=== PATIENT | female | born 1995 | race Caucasian/White ===

== ENCOUNTER 2017-01-04 21:16 | Emergency (ER) | payer SELFPAY ==
--- NOTE | 2017-01-04 21:30 | C.PDOC ---
History Of Present Illness Patient came in due to history of chest pain on and off since yesterday. Pain described to be at the left anterior chest area. Time Seen by Provider: 01/04/17 21:29 History Per: Patient History/Exam Limitations: no limitations Onset/Duration Of Symptoms: Days, Waxing/Waning Current Symptoms Are (Timing): Still Present Severity: Moderate Pain Scale Rating Of: 4 Location Of Discomfort (Image): 1 - left anterior lisa wall area Quality: Sharp Associated Symptoms: denies: Nausea, Dyspnea, Diaphoresis, Syncope Alleviating Factors: Other (increased by palpation and movemeny) Recent travel outside of the [place]: No Additional History Per: Patient Past Medical History Vital Signs: Last Vital Signs Temp 98.2 F 01/04/17 21:25 Pulse 83 01/04/17 21:25 Resp 24 01/04/17 21:25 BP 115/73 01/04/17 21:25 Pulse Ox 100 01/04/17 23:37 - Medical History PMH: No Chronic Diseases Surgical History: No Surg Hx Family History: States: Unknown Family Hx Review Of Systems Constitutional: Negative for: Fever, Chills, Sweats, Weakness, Malaise, Weight loss Cardiovascular: Positive for: Chest Pain. Negative for: Palpitations, Orthopnea , Paroxysmal Noc. Dyspnea, Edema, Light Headedness Respiratory: Negative for: Cough, Shortness of Breath, Hemoptysis, SOB with Excertion, Sputum Gastrointestinal: Negative for: Nausea, Vomiting, Abdominal Pain, Diarrhea Genitourinary: Negative for: Dysuria, Frequency, Incontinence Musculoskeletal: Negative for: Neck Pain, Shoulder Pain, Arm Pain Skin: Negative for: Rash, Lesions Neurological: Negative for: Weakness, Numbness, Incoordination, Change in Speech , Confusion, Seizures, Altered Mental Status, Headache Psych: Negative for: Anxiety, Depression Physical Exam - Physical Exam Appears: Well, Non-toxic Skin: Normal Color Head: Atraumatic Nose: Normal Throat: Normal Neck: Normal Chest: Symmetrical, No Deformity, Tenderness (left anterior chest wall area.), No Ecchymosis, No Subcutaneous Emphysema Cardiovascular: Rhythm Regular Respiratory: Normal Breath Sounds Gastrointestinal/Abdominal: Normal Exam Back: Normal Inspection Extremity: Normal ROM ED Course And Treatment - Laboratory Results Result Diagrams: 01/04/17 21:45 01/04/17 21:45 ECG: Interpreted By Me, Viewed By Me ECG Rhythm: Sinus Rhythm ECG Interpretation: Normal, No Acute Changes Interpretation Of ECG: NSR, normal tracings. Rate From EC O2 Sat by Pulse Oximetry: 100 Pulse Ox Interpretation: Normal - Radiology CXR: Interpreted by Me, Viewed By Me CXR Interpretation: Yes: No Acute Disease, Other (normal chest film). No: Infiltrates, Pnemothorax Disposition Counseled Patient/Family Regarding: Diagnosis - Disposition Referrals: [facility] [Outside] Disposition: HOME/ ROUTINE Disposition Time: 23:34 Condition: STABLE Prescriptions: Naproxen 375 mg PO Q8 #20 tablet Potassium Chloride [K-Dur 20] 20 meq PO DAILY #7 tab Instructions: Hypokalemia (DC), Chest Wall Pain (ED) - POA Present On Arrival: None - Clinical Impression Clinical Impression: Chest wall pain, Hypokalemia
[2017-01-04 21:32] VITALS: O2SAT 100
[2017-01-04 21:52] LABS: BASO % 0.6 % (0.0-2.0); EOS # 0.1 K/uL (0.0-0.7); EOS % 1.6 % (0.0-4.0); HEMATOCRIT 33.2 % (34.0-47.0); LYMPH # 2.7 K/uL (1.0-4.3); MEAN CELL VOLUME 84.5 fL (81.0-99.0); MEAN CORPUSCULAR HEMOGLOBIN 28.3 pg (27.0-31.0); MEAN CORPUSCULAR HGB CONC 33.5 g/dL (33.0-37.0); MEAN PLATELET VOLUME 8.5 fL (7.2-11.7); MONO # 0.6 K/uL (0.0-0.8); MONO % 7.8 % (0.0-10.0); RED CELL DISTRIBUTION WIDTH 13.2 % (11.5-14.5); WHITE BLOOD COUNT 7.9 K/uL (4.8-10.8)
[2017-01-04 21:57] LABS: CHLORIDE 101 mmol/L (98-107); SODIUM 137 mmol/L (132-148)
[2017-01-04 21:58] LABS: POTASSIUM 3.3 mmol/L (3.6-5.2)
[2017-01-04 22:00] LABS: ALB/GLOB RATIO 1.3 (1.0-2.1); ALKALINE PHOSPHATASE 61 U/L (38-126); AST/SGOT 22 U/L (14-36); BILIRUBIN,TOTAL 0.5 mg/dL (0.2-1.3); BLOOD UREA NITROGEN 14 mg/dL (7-17); CARBON DIOXIDE 22 mmol/L (22-30); GFR AFRICAN-AMERICAN > 60; TOTAL PROTEIN 7.8 g/dL (6.3-8.3)
[2017-01-04 22:01] LABS: ALT/SGPT 30 U/L (9-52); CALCIUM 9.3 mg/dl (8.6-10.4); GLUCOSE,RANDOM 83 mg/dL (65-105)
[2017-01-04] MEDS: Potassium Chloride 20 mEq ER Tab PO STA ×2 (22:12→23:00)
[2017-01-04] MEDS ORDERED: Potassium Chloride 20 mEq ER Tab PO ONE ×3 (22:13→23:01)
[2017-01-04 23:50] VITALS: BP 114/67; PULSE 84; RESP 18; TEMP 98
--- NOTE | 2017-01-05 08:47 | RAD ---
HISTORY: chest pain COMPARISON: No prior. TECHNIQUE: Chest PA and lateral FINDINGS: LUNGS: Mild venous congestion. Bibasilar breast and nipple shadows. Small nodular densities at the bilateral lung bases likely represent prominent vessels on end. PLEURA: No significant pleural effusion identified. No pneumothorax apparent. CARDIOVASCULAR: Normal. OSSEOUS STRUCTURES: Scoliotic curvature of the spine. VISUALIZED UPPER ABDOMEN: Normal. OTHER FINDINGS: None. IMPRESSION: Mild venous congestion. Bibasilar breast and nipple shadows. Small nodular densities at the bilateral lung bases likely represent prominent vessels on end.
--- NOTE | 2017-01-05 13:02 | CARD ---
APPROVED REPORT EKG Measurement Heart [id number] [id number] <Conclusion> Normal sinus rhythm with sinus arrhythmia Normal ECG
[2017-01-05] MEDS ORDERED: Potassium Chloride 20 mEq ER Tab PO ONE (23:01)
== END 2017-01-04 23:52 | disposition home or self-care (01) ==
LOC: C.ER 21:16
DX: R07.89 Other chest pain (principal); E87.6 Hypokalemia
CPT/HCPCS: 71020; 80053; 84484; 85025; 85378; 93005; 96374; 99284; G0480; J1885

== ENCOUNTER 2017-12-08 15:36 | Emergency (ER) | payer MEDICAID, OTHER ==
[2017-12-08 15:48] VITALS: BP 108/66; PULSE 85; RESP 18; TEMP 98.7; O2SAT 100
--- NOTE | 2017-12-08 16:45 | C.PDOC ---
History Of Present Illness 22 y/o female presents to the ED complaining of occasional hard bowel movements over the past 4 days. States she tried taking dulcolax at home without relief. Patient admits her diet is composed of mostly junk food. Denies any vomiting, diarrhea, fever, chills, or other complaints. Time Seen by Provider: 12/08/17 16:31 Chief Complaint (Nursing): Abdominal Pain History Per: Patient History/Exam Limitations: no limitations Onset/Duration Of Symptoms: Days Current Symptoms Are (Timing): Still Present Associated Symptoms: Constipation Past Medical History Reviewed: Historical Data, Nursing Documentation, Vital Signs Vital Signs: Last Vital Signs Temp 98.7 F 12/08/17 15:46 Pulse 85 12/08/17 15:46 Resp 18 12/08/17 15:46 BP 108/66 12/08/17 15:46 Pulse Ox 100 12/08/17 16:45 - Medical History PMH: No Chronic Diseases Surgical History: No Surg Hx Family History: States: Unknown Family Hx - Social History Hx Alcohol Use: No Hx Substance Use: No - Immunization History Hx Tetanus Toxoid Vaccination: No Hx Influenza Vaccination: No Hx Pneumococcal Vaccination: No Review Of Systems Except As Marked, All Systems Reviewed And Found Negative. Constitutional: Negative for: Fever, Chills Gastrointestinal: Positive for: Constipation. Negative for: Nausea, Vomiting, Diarrhea Physical Exam - Physical Exam Appears: Non-toxic, No Acute Distress, Other (Thin female) Skin: Warm, Dry Head: Atraumatic, Normacephalic Eye(s): bilateral: Normal Inspection Nose: Normal Oral Mucosa: Moist Neck: Normal ROM Chest: Symmetrical Cardiovascular: Rhythm Regular, No Murmur Respiratory: Normal Breath Sounds, No Accessory Muscle Use Gastrointestinal/Abdominal: Bowel Sounds (active), Soft, Tenderness (left colicky pain on palpation, (-) Amaral's sign, (-) McBurney's point tenderness), No Distention, No Guarding Extremity: Bilateral: Atraumatic, Normal Color And Temperature, Normal ROM Neurological/Psych: Oriented x3, Normal Speech ED Course And Treatment O2 Sat by Pulse Oximetry: 100 (RA) Pulse Ox Interpretation: Normal Medical Decision Making Medical Decision Making: Impression: assures not preg, not active extensively reviewed enema first, then repeat laxative until successful counseled regarding diet changes Disposition Doctor Will See Patient In The: Office Counseled Patient/Family Regarding: Studies Performed, Diagnosis - Disposition Referrals: [facility] [Outside] [facility] [Outside] [facility] [Outside] [facility] [Outside] Disposition: HOME/ ROUTINE Disposition Time: 16:44 Condition: GOOD Additional Instructions: Fleets enema FIRST THEN Drink a bottle of Mag Citrate (laxative) repeat each as necessary diet and exercise changes 7 fresh fruits and vegetables daily drink more water less junk food. outpatient follow-up as needed Call for appt. Instructions: Constipation, Adult (DC) Forms: [facility] (Andorran), School Excuse - POA Present On Arrival: None - Clinical Impression Clinical Impression: Abdominal pain, colicky - Scribe Statement The provider has reviewed the documentation as recorded by the Scribe (Lori Akhtar) Provider Attestation: All medical record entries made by the Scribe were at my direction and personally dictated by me. I have reviewed the chart and agree that the record accurately reflects my personal performance of the history, physical exam, medical decision making, and the department course for this patient. I have also personally directed, reviewed, and agree with the discharge instructions and disposition.
== END 2017-12-08 16:57 | disposition home or self-care (01) ==
LOC: C.ER 15:36
DX: R10.84 Generalized abdominal pain (principal)

== ENCOUNTER 2017-12-08 23:00 | Inpatient (IN) | payer MEDICAID, OTHER ==
--- NOTE | 2017-12-09 00:22 | C.PDOC ---
History Of Present Illness 22 year old female presents to the ER with a complaint of abdominal pain, bloating, and cramping, associated with some nausea and diarrhea. Patient was seen here earlier today for similar complaint and was found to be constipated, she was given fleet with mag citrate and reports having 7 or 8 episode of very loose now watery stool. However, she continues to have crampy abdominal discomfort which prompted visit. Denies fever or chills. Time Seen by Provider: 12/09/17 00:21 Chief Complaint (Nursing): Abdominal Pain History Per: Patient History/Exam Limitations: no limitations Onset/Duration Of Symptoms: Hrs Current Symptoms Are (Timing): Still Present Context: Other Severity: Moderate Pain Scale Rating Of: 4 Location Of Pain/Discomfort: Diffuse, Epigastric Quality Of Discomfort: Cramping Associated Symptoms: Nausea, Diarrhea. denies: Fever, Chills Exacerbating Factors: None Alleviating Factors: None Recent travel outside of the [place]: No Additional History Per: Patient Abnormal Vaginal Bleeding: No Past Medical History Reviewed: Historical Data, Nursing Documentation, Vital Signs Vital Signs: Last Vital Signs Temp 98.7 F 12/09/17 03:27 Pulse 66 12/09/17 03:27 Resp 14 12/09/17 03:27 BP 95/59 L 12/09/17 03:27 Pulse Ox 99 12/09/17 03:27 Family History: States: Unknown Family Hx - Social History Hx Alcohol Use: No Hx Substance Use: No - Immunization History Hx Tetanus Toxoid Vaccination: No Hx Influenza Vaccination: No Hx Pneumococcal Vaccination: No Review Of Systems Constitutional: Negative for: Fever, Chills Cardiovascular: Negative for: Chest Pain, Palpitations Respiratory: Negative for: Cough, Shortness of Breath Gastrointestinal: Positive for: Nausea, Abdominal Pain, Diarrhea Neurological: Negative for: Weakness, Numbness Physical Exam - Physical Exam Appears: Non-toxic Skin: Warm, Dry Head: Normacephalic Oral Mucosa: Moist Neck: Supple Chest: Symmetrical, No Tenderness Cardiovascular: Rhythm Regular Respiratory: No Rales, No Rhonchi, No Wheezing Gastrointestinal/Abdominal: Soft, Tenderness (mid epigastric), Distention ( Mildly), No Guarding, No Rebound, Other (Tympanic to percussion) Back: No CVA Tenderness Extremity: Bilateral: Atraumatic Neurological/Psych: Oriented x3 Gait: Steady ED Course And Treatment - Laboratory Results Result Diagrams: 12/09/17 00:59 12/09/17 00:59 O2 Sat by Pulse Oximetry: 100 (Room air) Pulse Ox Interpretation: Normal Progress Note: Blood work and urinalysis ordered. IV fluids administered. Disposition Discussed With DrElvi: Jack Alvarez Comment: accepted the pt on his service and took over the care at 5:13AM Doctor Will See Patient In The: ED Counseled Patient/Family Regarding: Studies Performed, Diagnosis - Disposition Disposition: HOSPITALIZED Disposition Time: 00:22 Condition: FAIR Forms: [employer] (Albanian) - Clinical Impression Clinical Impression: Abdominal pain, Acute pancreatitis - Scribe Statement The provider has reviewed the documentation as recorded by the Scribe Eleazar Umanzor All medical record entries made by the Hannyibe were at my direction and personally dictated by me. I have reviewed the chart and agree that the record accurately reflects my personal performance of the history, physical exam, medical decision making, and the department course for this patient. I have also personally directed, reviewed, and agree with the discharge instructions and disposition.
[2017-12-09] MEDS ORDERED: Sodium Chloride 0.9% 1,000 ML IV ONE (00:25)
[2017-12-09] MEDS ORDERED: Sodium Chloride 0.9% 1,000 ML ONE (00:31)
[2017-12-09 01:02] LABS: BASO % 0.5 % (0.0-2.0); EOS # 0.1 K/uL (0.0-0.7); EOS % 1.9 % (0.0-4.0); HEMOGLOBIN 12.3 g/dL (11.0-16.0); LYMPH # 2.1 K/uL (1.0-4.3); LYMPH % 27.8 % (20.0-40.0); MEAN CELL VOLUME 87.8 fL (81.0-99.0); MEAN CORPUSCULAR HGB CONC 34.2 g/dL (33.0-37.0); MEAN PLATELET VOLUME 8.6 fL (7.2-11.7); MONO # 0.7 K/uL (0.0-0.8); MONO % 8.9 % (0.0-10.0); NEUT # 4.7 K/uL (1.8-7.0); NEUT % 60.9 % (50.0-75.0); RBC 4.09 Mil/uL (3.80-5.20); RED CELL DISTRIBUTION WIDTH 13.3 % (11.5-14.5); WHITE BLOOD COUNT 7.7 K/uL (4.8-10.8)
[2017-12-09 01:09] LABS: SQUAMOUS EPITHIAL 1 /hpf (0-5); URINE BACTERIA RARE (<OCC); URINE BILIRUBIN NEGATIVE (NEGATIVE); URINE BLOOD NEGATIVE (NEGATIVE); URINE CLARITY Clear (Clear); URINE COLOR Yellow (YELLOW); URINE GLUCOSE (UA) NORMAL (Normal); URINE LEUKOCYTE ESTERASE NEG Leu/uL (Negative); URINE PROTEIN NEGATIVE (NEGATIVE); URINE UROBILINOGEN NORMAL mg/dL (0.2-1.0)
[2017-12-09 01:10] LABS: HCG,QUALITATIVE URINE NEGATIVE (NEGATIVE)
[2017-12-09 01:14] LABS: ALB/GLOB RATIO 1.6 (1.0-2.1); ALBUMIN 4.5 g/dL (3.5-5.0); ALT/SGPT 22 U/L (9-52); AST/SGOT 15 U/L (14-36); BLOOD UREA NITROGEN 8 mg/dL (7-17); CALCIUM 9.1 mg/dl (8.6-10.4); GFR NON-AFRICAN AMERICAN > 60; INR 1.4
[2017-12-09 01:31] LABS: LIPASE 3180 U/L (23-300)
[2017-12-09] MEDS ORDERED: Iodixanol 320 MG/ML 100 ML BOTTLE IV ONE (01:52)
[2017-12-09 06:46] LABS: BARBITURATES, UR NEGATIVE (NEGATIVE); BENZODIAZEPINES, UR NEGATIVE (NEGATIVE); OPIATES, UR NEGATIVE (NEGATIVE); PHENCYCLIDINE, UR NEGATIVE (NEGATIVE)
[2017-12-09] MEDS: Sodium Chloride 0.9% 1,000 ML IV SCH ×3 (07:32→17:28)
--- NOTE | 2017-12-09 07:59 | CP.PCM.HP ---
<VirginiadeirdreRicardo - Last Filed: 12/09/17 07:36> History of Present Illness - History of Present Illness History of Present Illness: PGY-[address] History and Physical [address] Shearer Patient is a 22 year old female with PMHx iron deficiency anemia who presents with 5 days LLQ pain, constipation, and diarrhea. Patient states that 5 days ago she began to experience pain located in the lower left quadrant of her abdomen, associated with constipation. Pt states that the pain fluctuated but persisted for 5 days. The pain does not radiate across the abdomen or to the back. She denies any association of symptoms with food intake. On , pt came to the ED for these symptoms, was treated with fleet enema and magnesium citrate for constipation and was discharged. At that time, she did have a bowel movement and her bowel movements since then have been watery. She does state that today there was a small amount of light red blood mixed in with her stool. Patient denies alcohol use, any history of nephrolithiasis, trauma, history of hyperlipidemia. Patient denies any fevers or chills. Patient did not try taking anything for pain at home, but did receive 30mg toradol IV in the ED which she states took her pain from a 10/10 to 3/10. Pt denies chest pain, headaches, palpitations, vomiting, paresthesias. PMHx: History of anemia, she believes due to iron deficiency, though pt does not take iron supplements at home. PSHx: None Allergies: NKA Medications: No home meds Social: Denies alcohol or tobacco use Family history: No known family history PMD: None Code: Full Code Present on Admission - Present on Admission Any Indicators Present on Admission: No Review of Systems - Constitutional Constitutional: absent: Chills, Fatigue, Fever - EENT Eyes: absent: Blurred Vision, Change in Vision Nose/Mouth/Throat: absent: Nasal Congestion, Nasal Discharge - Cardiovascular Cardiovascular: absent: Chest Pain, Edema - Respiratory Respiratory: absent: Cough, Dyspnea, Wheezing - Gastrointestinal Gastrointestinal: Abdominal Pain (+LLQ pain, not exacerbated by food), Change in Stool Character, Constipation (Constipation for several days followed by diarrhea), Diarrhea. absent: Nausea, Vomiting - Genitourinary Genitourinary: absent: Dysuria, Hematuria, Urinary Frequency - Musculoskeletal Musculoskeletal: absent: Back Pain, Stiffness - Neurological Neurological: absent: Dizziness, Headaches, Weakness - Psychiatric Psychiatric: absent: Anxiety, Depression - Hematologic/Lymphatic Hematologic: absent: Easy Bleeding, Easy Bruising Past Patient History - Past Social History Smoking Status: Never Smoked - PSYCHIATRIC Hx Substance Use: No - SURGICAL HISTORY Hx Surgeries: No - ANESTHESIA Hx Anesthesia: No Meds Allergies/Adverse Reactions: Allergies Allergy/AdvReac Type Severity Reaction Status Date / Time No Known Allergies Allergy Verified 12/08/17 23:10 Physical Exam - Head Exam Head Exam: ATRAUMATIC, NORMAL INSPECTION - Eye Exam Eye Exam: EOMI, Normal appearance Pupil Exam: NORMAL ACCOMODATION, PERRL - ENT Exam ENT Exam: Mucous Membranes Moist, Normal Exam - Respiratory Exam Respiratory Exam: Clear to Auscultation Bilateral, NORMAL BREATHING PATTERN. absent: Rales, Rhonchi, Wheezes - Cardiovascular Exam Cardiovascular Exam: REGULAR RHYTHM, RRR, +S1, +S2. absent: Systolic Murmur - GI/Abdominal Exam GI & Abdominal Exam: Normal Bowel Sounds, Soft, Tenderness (+LLQ tenderness to deep palpation). absent: Distended, Firm, Guarding, Rebound, Rigid - Extremities Exam Extremities exam: Positive for: normal inspection, pedal pulses present. Negative for: pedal edema, tenderness - Neurological Exam Neurological exam: Alert, CN II-XII Intact, Oriented x3 - Psychiatric Exam Psychiatric exam: Normal Affect, Normal Mood - Skin Skin Exam: Dry, Intact, Normal Color, Warm Results - Vital Signs Recent Vital Signs: Last Vital Signs Temp 98.1 F 12/09/17 06:35 Pulse 75 12/09/17 06:35 Resp 20 12/09/17 06:35 BP 107/68 12/09/17 06:35 Pulse Ox 100 12/09/17 06:35 - Labs Result Diagrams: 12/09/17 00:59 12/09/17 00:59 Labs: Laboratory Results - last 24 hr 12/09/17 12/09/17 12/09/17 00:59 00:59 00:59 WBC 7.7 RBC 4.09 Hgb 12.3 Hct 35.9 MCV 87.8 D MCH 30.0 MCHC 34.2 RDW 13.3 Plt Count 232 MPV 8.6 Neut % (Auto) 60.9 Lymph % (Auto) 27.8 [place] % (Auto) 8.9 Eos % (Auto) 1.9 Baso % (Auto) 0.5 Neut # (Auto) 4.7 Lymph # (Auto) 2.1 [place] # (Auto) 0.7 Eos # (Auto) 0.1 Baso # (Auto) 0.0 PT 15.0 H INR 1.4 APTT 36 H Sodium Potassium Chloride Carbon Dioxide Anion Gap BUN Creatinine Est GFR ( Amer) Est GFR (Non-Af Amer) Random Glucose Calcium Total Bilirubin AST ALT Alkaline Phosphatase Total Protein Albumin Globulin Albumin/Globulin Ratio Lipase Urine Color Yellow Urine Clarity Clear Urine pH 7.0 Ur Specific [place] 1.025 Urine Protein Negative Urine Glucose (UA) Normal Urine Ketones Negative Urine Blood Negative Urine Nitrate Negative Urine Bilirubin Negative Urine Urobilinogen Normal Ur Leukocyte Esterase Neg Urine WBC (Auto) 1 Urine RBC (Auto) 2 Ur Squamous Epith Cells 1 Urine Bacteria Rare Urine HCG, Qual Negative Urine Opiates Screen Urine Methadone Screen Ur Barbiturates Screen Ur Phencyclidine Scrn Ur Amphetamines Screen U Benzodiazepines Scrn U Oth Cocaine Metabols U Cannabinoids Screen 12/09/17 12/09/17 00:59 05:38 WBC RBC Hgb Hct MCV MCH MCHC RDW Plt Count MPV Neut % (Auto) Lymph % (Auto) [place] % (Auto) Eos % (Auto) Baso % (Auto) Neut # (Auto) Lymph # (Auto) [place] # (Auto) Eos # (Auto) Baso # (Auto) PT INR APTT Sodium 141 Potassium 3.8 Chloride 105 Carbon Dioxide 26 Anion Gap 14 BUN 8 Creatinine 0.7 Est GFR ( Amer) > 60 Est GFR (Non-Af Amer) > 60 Random Glucose 93 Calcium 9.1 Total Bilirubin 0.2 AST 15 ALT 22 Alkaline Phosphatase 55 Total Protein 7.3 Albumin 4.5 Globulin 2.9 Albumin/Globulin Ratio 1.6 Lipase 3180 H Urine Color Urine Clarity Urine pH Ur Specific [place] Urine Protein Urine Glucose (UA) Urine Ketones Urine Blood Urine Nitrate Urine Bilirubin Urine Urobilinogen Ur Leukocyte Esterase Urine WBC (Auto) Urine RBC (Auto) Ur Squamous Epith Cells Urine Bacteria Urine HCG, Qual Urine Opiates Screen Negative Urine Methadone Screen Negative Ur Barbiturates Screen Negative Ur Phencyclidine Scrn Negative Ur Amphetamines Screen Negative U Benzodiazepines Scrn Negative U Oth Cocaine Metabols Negative U Cannabinoids Screen Negative Assessment & Plan - Assessment and Plan (Free Text) Assessment: Assessment: 22 year old female, PMHx iron-deficiency anemia presents with 5 days LLQ pain and diarrhea, likel 2/2 pancreatitis. Per patient history, pt does not have risk factors a/w the most common causes of pancreatits. Plan to treat with IVF and bowel rest, work-up possible causes. 1) Acute Pancreatits * Admitted to F * NPO except meds * Imaging: * CT Abd/pelvis (12/09): "Findings suspicious for mild acute pancreatitis, involving the pancreatic tail. Mild periportal edema in the liver." * RUQ US - pending, rule out cholilithiasis as cause * IV Fluids * s/p .9% NS 1000cc bolus x1 in ED * Receiving .9% NS @ 200cc/hr * Labs * CBC w dif * CMP, Mag, Phos * Lipase - 3180 * Lipid panel * U tox - negative * Alcohol Serum * HgB A1C * TSH * Stool Cultures, stool O and P, fecal leukocytes * Medication * Toradol 15mg IVP Q6 prn for moderate pain * Toradol 30mg IVP Q6 prn for severe pain 2) PPx * VTE prophylaxis not indicated * NPO except meds Dispo: Patient being treated for mild acute pancreatitis with bowel rest and adequate IV fluids. Will continue to reassess clinically and advance diet in time as tolerated. Work up for possible causes of pancreatitis. Assessment/Plan Discussed with Dr. Gisell Galvan, PGY-1 <Jack Alvarez - Last Filed: 12/10/17 19:04> Results - Vital Signs Recent Vital Signs: Last Vital Signs Temp 98.4 F 12/10/17 15:00 Pulse 78 12/10/17 15:00 Resp 20 12/10/17 15:00 BP 91/54 L 12/10/17 15:00 Pulse Ox 99 12/10/17 15:00 - Labs Result Diagrams: 12/10/17 07:58 12/10/17 07:58 Labs: Laboratory Results - last 24 hr 12/09/17 12/09/17 12/10/17 10:38 21:52 07:58 WBC 5.2 RBC 3.57 L Hgb 10.8 L Hct 31.7 L MCV 88.7 MCH 30.3 MCHC 34.1 RDW 13.2 Plt Count 178 MPV 9.0 Neut % (Auto) 47.6 L Lymph % (Auto) 42.1 H [place] % (Auto) 7.3 Eos % (Auto) 2.4 Baso % (Auto) 0.6 Neut # (Auto) 2.5 Lymph # (Auto) 2.2 [place] # (Auto) 0.4 Eos # (Auto) 0.1 Baso # (Auto) 0.0 Sodium Potassium Chloride Carbon Dioxide Anion Gap BUN Creatinine Est GFR ( Amer) Est GFR (Non-Af Amer) Random Glucose Hemoglobin A1c 4.9 Calcium Phosphorus Magnesium Total Bilirubin AST ALT Alkaline Phosphatase Total Protein Albumin Globulin Albumin/Globulin Ratio Amylase Lipase Stool Occult Blood Stool Leukocytes, Qual Negative 12/10/17 12/10/17 12/10/17 07:58 08:26 11:31 WBC RBC Hgb Hct MCV MCH MCHC RDW Plt Count MPV Neut % (Auto) Lymph % (Auto) [place] % (Auto) Eos % (Auto) Baso % (Auto) Neut # (Auto) Lymph # (Auto) [place] # (Auto) Eos # (Auto) Baso # (Auto) Sodium 139 Potassium 3.8 Chloride 110 H Carbon Dioxide 21 L Anion Gap 12 BUN 4 L Creatinine 0.5 L Est GFR ( Amer) > 60 Est GFR (Non-Af Amer) > 60 Random Glucose 73 Hemoglobin A1c Calcium 8.2 L Phosphorus 2.8 Magnesium 2.0 Total Bilirubin 0.5 AST 13 L ALT 23 Alkaline Phosphatase 45 Total Protein 5.8 L Albumin 3.0 L D Globulin 2.8 Albumin/Globulin Ratio 1.1 Amylase 285 H Lipase 1728 H Stool Occult Blood Negative Stool Leukocytes, Qual Assessment & Plan - Date & Time Date: 12/10/17 (I have seen and examined the patient. I agree with the findings and plan of care as documented by Dr. Galvan. Patient. with acute pancreatitis. Denies alcohol abuse history. Check FLP. IVF. NPO. Symptomatic treatment. Monitor for acute changes.) Time: 19:02 Attending/Attestation - Attestation I have personally seen and examined this patient.: Yes I have fully participated in the care of the patient.: Yes I have reviewed all pertinent clinical information: Yes
--- NOTE | 2017-12-09 10:08 | US ---
Date of service: 12/09/2017 HISTORY: Pancreatitis, r/o cholithiasis as cause COMPARISON: None. TECHNIQUE: Sonographic evaluation of the right upper quadrant of the abdomen. FINDINGS: LIVER: Measures 16.3 cm in length. Increased echogenicity of the liver parenchyma. No mass. No intrahepatic bile duct dilatation. GALLBLADDER: Unremarkable. No gallstones. Sonographic Amaral's sign was not elicited. COMMON BILE DUCT: Measures 2 mm. No stones. No dilatation. PANCREAS: Limited evaluation. RIGHT KIDNEY: Measures 11.7 x 3.5 x 4.9 cm in length. Normal echogenicity. No calculus, mass, or hydronephrosis. AORTA: No aneurysmal dilatation. IVC: Unremarkable. OTHER FINDINGS: None . IMPRESSION: Mild hepatic steatosis. No cholelithiasis or evidence of cholecystitis.
--- NOTE | 2017-12-09 10:13 | CT ---
Date of service: 12/09/2017 PROCEDURE: CT Abdomen and Pelvis with contrast HISTORY: abd pain, mid epigastic, diarrhea COMPARISON: None. TECHNIQUE: Contrast dose: 100 mL Visipaque 320 Radiation dose: Total exam DLP = 281 mGy-cm. This CT exam was performed using one or more of the following dose reduction techniques: Automated exposure control, adjustment of the mA and/or kV according to patient size, and/or use of iterative reconstruction technique. FINDINGS: LOWER THORAX: Unremarkable. LIVER: Mild periportal edema. No gross lesion or ductal dilatation. GALLBLADDER AND BILE DUCTS: Unremarkable. PANCREAS: Peripancreatic stranding around the pancreatic tail. SPLEEN: Unremarkable. ADRENALS: Unremarkable. No mass. KIDNEYS AND URETERS: Unremarkable. No hydronephrosis. No solid mass. VASCULATURE: Unremarkable. No aortic aneurysm. BOWEL: Unremarkable. No obstruction. No gross mural thickening. APPENDIX: Normal appendix. PERITONEUM: Unremarkable. No free fluid. No free air. LYMPH NODES: Unremarkable. No enlarged lymph nodes. BLADDER: Unremarkable. REPRODUCTIVE: Involuting left corpus luteal follicle. BONES: No acute fracture. OTHER FINDINGS: None. IMPRESSION: Acute uncomplicated pancreatitis involving the pancreatic tail. Nonspecific mild periportal edema.
[2017-12-09 10:54] LABS: HDL CHOLESTEROL 48 mg/dL (30-70)
[2017-12-09 11:05] LABS: LDL CHOLESTEROL 40 mg/dL (0-129)
--- NOTE | 2017-12-09 19:56 | CP.PCM.PN ---
<Angelina Lowe - Last Filed: 12/09/17 20:00> Subjective - Date & Time of Evaluation Date of Evaluation: 12/09/17 Time of Evaluation: 08:00 - Subjective Subjective: Medicine progress note for Dr. Shearer: Patient was seen and examined at bedside this morning. She states she has been having crampy LLQ pain for about 4 days. Denies N/V. Patient denies alcohol use. States she has had less of an appetite recently because she has been busy. Denies urinary complaints. LMP 2 weeks ago was normal. No new complaints at this time. Objective - Vital Signs/Intake and Output Vital Signs (last 24 hours): Temp Pulse Resp BP Pulse Ox 98.0 F 71 20 103/65 99 12/09/17 15:40 12/09/17 15:40 12/09/17 15:40 12/09/17 15:40 12/09/17 15:40 - Medications Medications: Current Medications Sodium Chloride (Sodium Chloride 0.9%) 1,000 mls @ 125 mls/hr IV .Q8H MICHELLE Last Admin: 12/09/17 17:28 Dose: 125 mls/hr Ketorolac Tromethamine (Toradol) 15 mg IVP Q6 PRN PRN Reason: Pain, moderate (4-7) Ketorolac Tromethamine (Toradol) 30 mg IVP Q6 PRN PRN Reason: Pain, severe (8-10) - Labs Labs: 12/09/17 00:59 12/09/17 00:59 PT 15.0 SECONDS (9.7-12.2) H 12/09/17 00:59 INR 1.4 12/09/17 00:59 APTT 36 SECONDS (21-34) H 12/09/17 00:59 - Constitutional Appears: Non-toxic, No Acute Distress - Head Exam Head Exam: NORMAL INSPECTION - Eye Exam Eye Exam: EOMI Pupil Exam: NORMAL ACCOMODATION - ENT Exam ENT Exam: Mucous Membranes Moist - Respiratory Exam Respiratory Exam: Clear to Ausculation Bilateral, NORMAL BREATHING PATTERN. absent: Respiratory Distress - Cardiovascular Exam Cardiovascular Exam: REGULAR RHYTHM, +S1, +S2 - GI/Abdominal Exam GI & Abdominal Exam: Soft, Tenderness (mild LLQ. no epigastric tenderness), Normal Bowel Sounds. absent: Distended, Firm, Guarding - Extremities Exam Extremities Exam: Normal Inspection - Back Exam Back Exam: NORMAL INSPECTION. absent: CVA tenderness (L), CVA tenderness (R), paraspinal tenderness - Neurological Exam Neurological Exam: Alert, Awake, CN II-XII Intact, Oriented x3 - Psychiatric Exam Psychiatric exam: Normal Affect, Normal Mood - Skin Skin Exam: Dry, Normal Color Assessment and Plan - Assessment and Plan (Free Text) Assessment: Assessment: Assessment: 22 year old female, PMHx iron-deficiency anemia presents with 5 days LLQ pain and diarrhea, likel 2/2 pancreatitis. Per patient history, pt does not have risk factors a/w the most common causes of pancreatits. Plan to treat with IVF and bowel rest, work-up possible causes. Plan: Acute Pancreatits * CT Abd/pelvis (12/09): "Findings suspicious for mild acute pancreatitis, involving the pancreatic tail. Mild periportal edema in the liver." * RUQ US - fatty liver disease * Receiving 0.9% NS @ 125cc/hr * Lipase - 3180 * Trig 45, Chol 101, LDL 40, HDL 48 * U tox - negative * Full liquid diet * f/u autoimmune workup * Dr. Ni consulted - help appreciated * Medication * Toradol 15mg IVP Q6 prn for moderate pain * Toradol 30mg IVP Q6 prn for severe pain Loose stools * On admission patient stated she had diarrhea but this has resolved * f/u Stool studies PPx * SCDs * Full liquid diet Likely DC tomorrow after GI consult. Diet advanced as tolerated <Judi Shearer - Last Filed: 12/10/17 18:09> Objective - Vital Signs/Intake and Output Vital Signs (last 24 hours): Temp Pulse Resp BP Pulse Ox 98.4 F 78 20 91/54 L 99 12/10/17 15:00 12/10/17 15:00 12/10/17 15:00 12/10/17 15:00 12/10/17 15:00 Intake and Output: 12/10/17 12/10/17 06:59 18:59 Intake Total 2670 Balance 2670 - Medications Medications: Current Medications Ketorolac Tromethamine (Toradol) 15 mg IVP Q6 PRN PRN Reason: Pain, moderate (4-7) Last Admin: 12/09/17 22:10 Dose: 15 mg Ketorolac Tromethamine (Toradol) 30 mg IVP Q6 PRN PRN Reason: Pain, severe (8-10) Last Admin: 12/10/17 14:37 Dose: 30 mg - Labs Labs: 12/10/17 07:58 12/10/17 07:58 PT 15.0 SECONDS (9.7-12.2) H 12/09/17 00:59 INR 1.4 12/09/17 00:59 APTT 36 SECONDS (21-34) H 12/09/17 00:59 Attending/Attestation - Attestation I have personally seen and examined this patient.: Yes I have fully participated in the care of the patient.: Yes I have reviewed all pertinent clinical information, including history, physical exam and plan: Yes
[2017-12-10] MEDS: Sodium Chloride 0.9% 1,000 ML IV SCH ×2 (01:05→08:30)
[2017-12-10 08:16] LABS: BASO % 0.6 % (0.0-2.0); EOS # 0.1 K/uL (0.0-0.7); EOS % 2.4 % (0.0-4.0); HEMOGLOBIN 10.8 g/dL (11.0-16.0); LYMPH # 2.2 K/uL (1.0-4.3); LYMPH % 42.1 % (20.0-40.0); MEAN CELL VOLUME 88.7 fL (81.0-99.0); MEAN CORPUSCULAR HEMOGLOBIN 30.3 pg (27.0-31.0); MEAN CORPUSCULAR HGB CONC 34.1 g/dL (33.0-37.0); MONO # 0.4 K/uL (0.0-0.8); MONO % 7.3 % (0.0-10.0); NEUT # 2.5 K/uL (1.8-7.0); NEUT % 47.6 % (50.0-75.0); RBC 3.57 Mil/uL (3.80-5.20); RED CELL DISTRIBUTION WIDTH 13.2 % (11.5-14.5); WHITE BLOOD COUNT 5.2 K/uL (4.8-10.8)
[2017-12-10 08:49] LABS: ALB/GLOB RATIO 1.1 (1.0-2.1); ALT/SGPT 23 U/L (9-52); AST/SGOT 13 U/L (14-36); BLOOD UREA NITROGEN 4 mg/dL (7-17); CALCIUM 8.2 mg/dl (8.6-10.4); GFR NON-AFRICAN AMERICAN > 60
[2017-12-10 09:08] LABS: AMYLASE 285 U/L (30-110); LIPASE 1728 U/L (23-300)
[2017-12-10 09:13] VITALS: RESP 20
--- NOTE | 2017-12-10 15:12 | CP.PCM.PN ---
Subjective - Date & Time of Evaluation Date of Evaluation: 12/10/17 Time of Evaluation: 08:45 - Subjective Subjective: Medicine progress note for Dr. Shearer: Patient was seen and examined at bedside this morning. She states that she continues to have mild diffuse abdominal pain rated at 2/10. She denies n/v. Patient denies alcohol use. Denies urinary complaints. LMP 2 weeks ago was normal. No new complaints at this time. She is tolerating her CLD and will be advanced to regular diet. Objective - Vital Signs/Intake and Output Vital Signs (last 24 hours): Temp Pulse Resp BP Pulse Ox 98.1 F 73 20 100/60 100 12/10/17 07:40 12/10/17 07:40 12/10/17 07:40 12/10/17 07:40 12/10/17 07:40 Intake and Output: 12/10/17 12/10/17 06:59 18:59 Intake Total 2670 Balance 2670 - Medications Medications: Current Medications Sodium Chloride (Sodium Chloride 0.9%) 1,000 mls @ 125 mls/hr IV .Q8H MICHELLE Last Admin: 12/10/17 08:30 Dose: Not Given Ketorolac Tromethamine (Toradol) 15 mg IVP Q6 PRN PRN Reason: Pain, moderate (4-7) Last Admin: 12/09/17 22:10 Dose: 15 mg Ketorolac Tromethamine (Toradol) 30 mg IVP Q6 PRN PRN Reason: Pain, severe (8-10) Last Admin: 12/10/17 14:37 Dose: 30 mg - Labs Labs: 12/10/17 07:58 12/10/17 07:58 PT 15.0 SECONDS (9.7-12.2) H 12/09/17 00:59 INR 1.4 12/09/17 00:59 APTT 36 SECONDS (21-34) H 12/09/17 00:59 - Additional Findings Additional findings: - Constitutional Appears: Non-toxic, No Acute Distress - Head Exam Head Exam: NORMAL INSPECTION - Eye Exam Eye Exam: EOMI Pupil Exam: NORMAL ACCOMODATION - ENT Exam ENT Exam: Mucous Membranes Moist - Respiratory Exam Respiratory Exam: Clear to Ausculation Bilateral, NORMAL BREATHING PATTERN. absent: Respiratory Distress - Cardiovascular Exam Cardiovascular Exam: REGULAR RHYTHM, +S1, +S2 - GI/Abdominal Exam GI & Abdominal Exam: Soft, Normal Bowel Sounds. absent: Tenderness, Distended, Firm, Guarding - Extremities Exam Extremities Exam: Normal Inspection - Back Exam Back Exam: NORMAL INSPECTION. absent: CVA tenderness (L), CVA tenderness (R), paraspinal tenderness - Neurological Exam Neurological Exam: Alert, Awake, CN II-XII Intact, Oriented x3 - Psychiatric Exam Psychiatric exam: Normal Affect, Normal Mood - Skin Skin Exam: Dry, Normal Color Assessment and Plan - Assessment and Plan (Free Text) Assessment: Assessment: 22 year old female, PMHx iron-deficiency anemia presents with 5 days LLQ pain and diarrhea, likel 2/2 pancreatitis. Per patient history, pt does not have risk factors a/w the most common causes of pancreatits. Plan to treat with IVF and bowel rest, work-up possible causes. Acute Pancreatits 12/10: Lipase down trendin -> 1728 possible viral pancreatitis. diet advanced to regular diet today. Possible discharge if patient tolerates diet without overt abdominal pain and lipase continues to downtrend. * CT Abd/pelvis (12/09): "Findings suspicious for mild acute pancreatitis, involving the pancreatic tail. Mild periportal edema in the liver." * RUQ US - fatty liver disease * Receiving 0.9% NS @ 125cc/hr * Lipase - 3180 * Trig 45, Chol 101, LDL 40, HDL 48 * U tox - negative * Full liquid diet * f/u autoimmune workup * Dr. Ni consulted - help appreciated * Medication * Toradol 15mg IVP Q6 prn for moderate pain * Toradol 30mg IVP Q6 prn for severe pain Anemia 12/10: Hgb 10.7 today. stool occult negative patient is asymptomatic, continue to monitor Loose stools * On admission patient stated she had diarrhea but this has resolved * f/u Stool studies PPx * SCDs * Full liquid diet Disposition: Possible discharge if patient tolerates diet without overt abdominal pain and lipase continues to downtrend. Case discussed with Dr. Shearer
[2017-12-10 16:31] VITALS: BP 91/54; PULSE 78; TEMP 98.4; O2SAT 99
--- NOTE | 2017-12-10 18:45 | CP.PCM.DIS ---
Provider - Provider Date of Admission: 12/09/17 05:12 Attending physician: Jack Alvarez MD Primary care physician: none Consults: PRITESH Ni. Time Spent in preparation of Discharge (in minutes): 29 Hospital Course - Lab Results Lab Results: Most Recent Lab Values WBC 5.2 K/uL (4.8-10.8) 12/10/17 07:58 RBC 3.57 Mil/uL (3.80-5.20) L 12/10/17 07:58 Hgb 10.8 g/dL (11.0-16.0) L 12/10/17 07:58 Hct 31.7 % (34.0-47.0) L 12/10/17 07:58 MCV 88.7 fL (81.0-99.0) 12/10/17 07:58 MCH 30.3 pg (27.0-31.0) 12/10/17 07:58 MCHC 34.1 g/dL (33.0-37.0) 12/10/17 07:58 RDW 13.2 % (11.5-14.5) 12/10/17 07:58 Plt Count 178 K/uL (130-400) 12/10/17 07:58 MPV 9.0 fL (7.2-11.7) 12/10/17 07:58 Neut % (Auto) 47.6 % (50.0-75.0) L 12/10/17 07:58 Lymph % (Auto) 42.1 % (20.0-40.0) H 12/10/17 07:58 Butts % (Auto) 7.3 % (0.0-10.0) 12/10/17 07:58 Eos % (Auto) 2.4 % (0.0-4.0) 12/10/17 07:58 Baso % (Auto) 0.6 % (0.0-2.0) 12/10/17 07:58 Neut # (Auto) 2.5 K/uL (1.8-7.0) 12/10/17 07:58 Lymph # (Auto) 2.2 K/uL (1.0-4.3) 12/10/17 07:58 Butts # (Auto) 0.4 K/uL (0.0-0.8) 12/10/17 07:58 Eos # (Auto) 0.1 K/uL (0.0-0.7) 12/10/17 07:58 Baso # (Auto) 0.0 K/uL (0.0-0.2) 12/10/17 07:58 PT 15.0 SECONDS (9.7-12.2) H 12/09/17 00:59 INR 1.4 12/09/17 00:59 APTT 36 SECONDS (21-34) H 12/09/17 00:59 Sodium 139 mmol/L (132-148) 12/10/17 07:58 Potassium 3.8 mmol/L (3.6-5.2) 12/10/17 07:58 Chloride 110 mmol/L (98-107) H 12/10/17 07:58 Carbon Dioxide 21 mmol/L (22-30) L 12/10/17 07:58 Anion Gap 12 (10-20) 12/10/17 07:58 BUN 4 mg/dL (7-17) L 12/10/17 07:58 Creatinine 0.5 mg/dL (0.7-1.2) L 12/10/17 07:58 Est GFR ( Amer) > 60 12/10/17 07:58 Est GFR (Non-Af Amer) > 60 12/10/17 07:58 Random Glucose 73 mg/dL (65-105) 12/10/17 07:58 Hemoglobin A1c 4.9 % (4.2-6.5) 12/09/17 10:38 Calcium 8.2 mg/dl (8.6-10.4) L 12/10/17 07:58 Phosphorus 2.8 mg/dL (2.5-4.5) 12/10/17 07:58 Magnesium 2.0 mg/dL (1.6-2.3) 12/10/17 07:58 Total Bilirubin 0.5 mg/dL (0.2-1.3) 12/10/17 07:58 AST 13 U/L (14-36) L 12/10/17 07:58 ALT 23 U/L (9-52) 12/10/17 07:58 Alkaline Phosphatase 45 U/L (38-126) 12/10/17 07:58 Total Protein 5.8 g/dL (6.3-8.3) L 12/10/17 07:58 Albumin 3.0 g/dL (3.5-5.0) L D 12/10/17 07:58 Globulin 2.8 gm/dL (2.2-3.9) 12/10/17 07:58 Albumin/Globulin Ratio 1.1 (1.0-2.1) 12/10/17 07:58 Triglycerides 45 mg/dL (0-149) 12/09/17 10:38 Cholesterol 101 mg/dL (0-199) 12/09/17 10:38 LDL Cholesterol Direct 40 mg/dL (0-129) 12/09/17 10:38 HDL Cholesterol 48 mg/dL (30-70) 12/09/17 10:38 Amylase 285 U/L (30-110) H 12/10/17 08:26 Lipase 1728 U/L (23-300) H 12/10/17 08:26 TSH 3rd Generation 1.93 mIU/L (0.46-4.68) 12/09/17 10:38 Urine Color Yellow (YELLOW) 12/09/17 00:59 Urine Clarity Clear (Clear) 12/09/17 00:59 Urine pH 7.0 (5.0-8.0) 12/09/17 00:59 Ur Specific [place] 1.025 (1.003-1.030) 12/09/17 00:59 Urine Protein Negative mg/dL (NEGATIVE) 12/09/17 00:59 Urine Glucose (UA) Normal mg/dL (Normal) 12/09/17 00:59 Urine Ketones Negative mg/dL (NEGATIVE) 12/09/17 00:59 Urine Blood Negative (NEGATIVE) 12/09/17 00:59 Urine Nitrate Negative (NEGATIVE) 12/09/17 00:59 Urine Bilirubin Negative (NEGATIVE) 12/09/17 00:59 Urine Urobilinogen Normal mg/dL (0.2-1.0) 12/09/17 00:59 Ur Leukocyte Esterase Neg Miriam/uL (Negative) 12/09/17 00:59 Urine WBC (Auto) 1 /hpf (0-5) 12/09/17 00:59 Urine RBC (Auto) 2 /hpf (0-3) 12/09/17 00:59 Ur Squamous Epith Cells 1 /hpf (0-5) 12/09/17 00:59 Urine Bacteria Rare (<OCC) 12/09/17 00:59 Urine HCG, Qual Negative (NEGATIVE) 12/09/17 00:59 Stool Occult Blood Negative (NEGATIVE) 12/10/17 11:31 Stool Leukocytes, Qual Negative (NEGATIVE) 12/09/17 21:52 Urine Opiates Screen Negative (NEGATIVE) 12/09/17 05:38 Urine Methadone Screen Negative (NEGATIVE) 12/09/17 05:38 Ur Barbiturates Screen Negative (NEGATIVE) 12/09/17 05:38 Ur Phencyclidine Scrn Negative (NEGATIVE) 12/09/17 05:38 Ur Amphetamines Screen Negative (NEGATIVE) 12/09/17 05:38 U Benzodiazepines Scrn Negative (NEGATIVE) 12/09/17 05:38 U Oth Cocaine Metabols Negative (NEGATIVE) 12/09/17 05:38 U Cannabinoids Screen Negative (NEGATIVE) 12/09/17 05:38 Alcohol, Quantitative < 10 mg/dl (0-10) 12/09/17 10:38 - Hospital Course Hospital Course: Upon hospital admission: Patient is a 22 year old female with PMHx iron deficiency anemia who presents with 5 days LLQ pain, constipation, and diarrhea. Patient states that 5 days ago she began to experience pain located in the lower left quadrant of her abdomen, associated with constipation. Pt states that the pain fluctuated but persisted for 5 days. The pain does not radiate across the abdomen or to the back. She denies any association of symptoms with food intake. On , pt came to the ED for these symptoms, was treated with fleet enema and magnesium citrate for constipation and was discharged. At that time, she did have a bowel movement and her bowel movements since then have been watery. She does state that today there was a small amount of light red blood mixed in with her stool. Patient denies alcohol use, any history of nephrolithiasis, trauma, history of hyperlipidemia. Patient denies any fevers or chills. Patient did not try taking anything for pain at home, but did receive 30mg toradol IV in the ED which she states took her pain from a 10/10 to 3/10. Pt denies chest pain, headaches, palpitations, vomiting, paresthesias. PMHx: History of anemia, she believes due to iron deficiency, though pt does not take iron supplements at home. PSHx: None Allergies: NKA Medications: No home meds Social: Denies alcohol or tobacco use Family history: No known family history During hospital course, the patient was evaluated and treated for the following : Acute Pancreatits with elevated lipase on admission at 3180, which downtrended to 1728. Possible viral pancreatitis was suspected. Dr. Ni (GI) was consulted, who ordered an autoimmune workup and considered MRCP if her abdominal pain did not improve and lipase did not downtrend. Urine tox was negative. The patients diet was slowly advanced to a regular diet on 12/10. She tolerated a regular lunch on 12/10 with mild abdominal pain. She ultimately tolerated a regular dinner with no abdominal pain and requested to go home. The patient did well during this admission, responded well to treatment, and was deemed stable for discharge. Imaging: * CT Abd/pelvis (12/09): "Findings suspicious for mild acute pancreatitis, involving the pancreatic tail. Mild periportal edema in the liver." * RUQ US - fatty liver disease Upon hospital discharge, the patient was provided with the following instructions: Patient is stable for discharge per Dr. Shearer. Patient should resume all medications as outlined in this document. 1. Please make an appointment and follow up with your Primary Doctor within one week of discharge. If patient does not have a Primary Doctor, please follow up with [facility] to establish medical care, at [phone]. 2. While hospitalized, your lipase level was decreasing from 3180 to 1728. You were able to tolerate your lunch and dinner without abdominal pain. 3. It is recommended that you maintain a bland diet for at least 5 days. 4. At the clinic, please have your amylase and lipase levels repeated to ensure your pancreas is okay. Patient should return to ED immediately if symptoms return or worsen. Instructions discussed with patient who understood and agreed. This is a summary of the patient's hospital admission, see chart for comprehensive detail. - Date & Time of H&P Date of H&P: 12/09/17 Time of H&P: 07:36 Discharge Exam - Additional Findings Additional findings: - Constitutional Appears: Non-toxic, No Acute Distress - Head Exam Head Exam: NORMAL INSPECTION - Eye Exam Eye Exam: EOMI Pupil Exam: NORMAL ACCOMODATION - ENT Exam ENT Exam: Mucous Membranes Moist - Respiratory Exam Respiratory Exam: Clear to Ausculation Bilateral, NORMAL BREATHING PATTERN. absent: Respiratory Distress - Cardiovascular Exam Cardiovascular Exam: REGULAR RHYTHM, +S1, +S2 - GI/Abdominal Exam GI & Abdominal Exam: Soft, Normal Bowel Sounds. absent: Tenderness, Distended, Firm, Guarding - Extremities Exam Extremities Exam: Normal Inspection - Back Exam Back Exam: NORMAL INSPECTION. absent: CVA tenderness (L), CVA tenderness (R), paraspinal tenderness - Neurological Exam Neurological Exam: Alert, Awake, CN II-XII Intact, Oriented x3 - Psychiatric Exam Psychiatric exam: Normal Affect, Normal Mood - Skin Skin Exam: Dry, Normal Color Discharge Plan - Follow Up Plan Condition: FAIR Disposition: HOME/ ROUTINE Instructions: Pancreatitis (DC), Acute Abdomen (Belly Pain), Adult (DC) Additional Instructions: Patient is stable for discharge per Dr. Shearer. Patient should resume all medications as outlined in this document. 1. Please make an appointment and follow up with your Primary Doctor within one week of discharge. If patient does not have a Primary Doctor, please follow up with [facility] to establish medical care, at [phone]. 2. While hospitalized, your lipase level was decreasing from 3180 to 1728. You were able to tolerate your lunch and dinner without abdominal pain. 3. It is recommended that you maintain a bland diet for at least 5 days. 4. At the clinic, please have your amylase and lipase levels repeated to ensure your pancreas is okay. Patient should return to ED immediately if symptoms return or worsen. Instructions discussed with patient who understood and agreed.
[2017-12-10] MEDS ORDERED: Pneumococcal 23-Valent Vaccine IM ONE (19:28)
== END 2017-12-10 21:35 | disposition home or self-care (01) | DRG 440 ==
LOC: C.ER 23:00 → C.5S 12-09 05:12
PROVIDERS: ADMIT Family Medicine; ATTEND Family Medicine
DX: K85.90 Acute pancreatitis without necrosis or infection, unspecified (principal); K59.00 Constipation, unspecified; K76.0 Fatty (change of) liver, not elsewhere classified

== ENCOUNTER 2017-12-22 19:15 | Emergency (ER) | payer SELFPAY ==
[2017-12-22 19:25] VITALS: BP 135/73; PULSE 85; RESP 18; TEMP 97.9; O2SAT 100
[2017-12-22] MEDS ORDERED: Lidocaine 1% w Epi 1:100,000 Inj INJ ONE (19:34)
--- NOTE | 2017-12-22 20:04 | C.PDOC ---
History Of Present Illness 22 yo female c/o right axilla pain and swelling for 5 days. Pt states that about 1.5 weeks ago she had her axilla waxed and a few days later she started feeling the pain. Notes h/o similar symptoms two years ago with I&D in the same area. Denies trauma, chest pain, sob, fever, change in sensation or weakness. HAs not taken any medication for the symptoms. Tetanus UTD after previous I&D. Time Seen by Provider: 12/22/17 19:21 Chief Complaint (Nursing): Abnormal Skin Integrity History Per: Patient History/Exam Limitations: no limitations Onset/Duration Of Symptoms: Days Current Symptoms Are (Timing): Still Present Quality Of Symptoms: Painful, Swollen Past Medical History Vital Signs: Last Vital Signs Temp 97.9 F 12/22/17 19:22 Pulse 85 12/22/17 19:22 Resp 18 12/22/17 19:22 BP 135/73 12/22/17 19:22 Pulse Ox 100 12/22/17 19:22 - Medical History PMH: Denies: Chronic Kidney Disease Family History: States: Unknown Family Hx - Social History Hx Alcohol Use: No Hx Substance Use: No - Immunization History Hx Tetanus Toxoid Vaccination: No Hx Influenza Vaccination: No Hx Pneumococcal Vaccination: No Review Of Systems Except As Marked, All Systems Reviewed And Found Negative. Physical Exam - Physical Exam Appears: Well, Non-toxic, No Acute Distress Skin: Warm, Dry, Other ((+) 2 cm area of swelling ,tenderness, and erythema (+) cental fluctuance) Head: Atraumatic, Normacephalic Eye(s): bilateral: Normal Inspection, EOMI Nose: Normal Oral Mucosa: Moist Neck: Normal, Normal ROM, Supple Chest: Symmetrical Cardiovascular: Rhythm Regular Respiratory: Normal Breath Sounds Gastrointestinal/Abdominal: Normal Exam Back: Normal Inspection Extremity: Normal ROM Neurological/Psych: Oriented x3, Normal Speech, Normal Cognition, Normal Motor, Normal Sensation ED Course And Treatment O2 Sat by Pulse Oximetry: 100 Progress Note: Discussed wound care and wound check in 2 days. - Incision & Drainage Of Abscess Anesthesia: Lidocaine 1%, With Epi Prep Used: Sterile Water, Betadine Procedure: Incised W/Scalpel Blade#: (11), Drained Pus, Irrigated Cavity W/Saline, Probed To Break Up Loculations, Packed W/Gauze, Cultures Obtained And Sent To Lab Disposition - Disposition Disposition: HOME/ ROUTINE Disposition Time: 20:04 Condition: STABLE Additional Instructions: Keep area clean and dry. Return in 2 days for wound check. Prescriptions: Clindamycin [Cleocin] 300 mg PO Q6 #28 cap Ibuprofen [Motrin] 600 mg PO Q6 PRN #20 tab PRN Reason: Pain, Mild (1-3) Instructions: Abscess Incision and Drainage (DC) Forms: [employer] (Greenlandic) - Clinical Impression Clinical Impression: Incisional abscess
== END 2017-12-22 20:13 | disposition home or self-care (01) ==
LOC: C.ER 19:15
DX: L02.411 Cutaneous abscess of right axilla (principal)

== ENCOUNTER 2017-12-24 13:59 | Emergency (ER) | payer MEDICAID ==
[2017-12-24 14:09] VITALS: BP 122/70; PULSE 84; RESP 16; TEMP 98.2; O2SAT 99
--- NOTE | 2017-12-24 14:40 | C.PDOC ---
History Of Present Illness 22 yo female come in for scheduled wound check after abscess I&D here on 12/22/17 on Right axilla . Pt reports, pain is mod improved, denies fever, chills, wound discharges, denies Right arm weakness, sensory or vascular deficits. Ambulate to Ed for evaluation, not in any apparent distress. Time Seen by Provider: 12/24/17 14:12 Chief Complaint (Nursing): Abnormal Skin Integrity History Per: Patient Past Medical History Reviewed: Historical Data, Nursing Documentation Vital Signs: Last Vital Signs Temp 98.2 F 12/24/17 14:06 Pulse 84 12/24/17 14:06 Resp 16 12/24/17 14:06 BP 122/70 12/24/17 14:06 Pulse Ox 99 12/24/17 14:06 - Medical History PMH: No Chronic Diseases Denies: Chronic Kidney Disease Surgical History: No Surg Hx Family History: States: Unknown Family Hx - Social History Hx Alcohol Use: No Hx Substance Use: No - Immunization History Hx Tetanus Toxoid Vaccination: Yes Hx Influenza Vaccination: No Hx Pneumococcal Vaccination: Yes Review Of Systems Except As Marked, All Systems Reviewed And Found Negative. Constitutional: Negative for: Fever, Chills Musculoskeletal: Negative for: Arm Pain Skin: Positive for: Lesions Neurological: Negative for: Weakness, Numbness Physical Exam - Physical Exam Appears: Well, Non-toxic, No Acute Distress Skin: Normal Color, Warm, Other ((+) small open wound right axilla, packing fell off, No erythema, no edema, no flactulance, no wound discharges, no proximal streaking.) Extremity: Normal ROM (RUE), No Tenderness, No Deformity, No Swelling Neurological/Psych: Oriented x3, Normal Speech ED Course And Treatment O2 Sat by Pulse Oximetry: 99 Progress Note: WOund over Right axilla cleaned, irrigated. No evidence of cellulitis or flactulance. Pt advised. rf. to f/u with PMD in 2-3 dyas for re-eavl. return to ED if anyw orsening or new changes. Disposition Counseled Patient/Family Regarding: Diagnosis, Need For Followup - Disposition Referrals: [facility] [Outside] Disposition: HOME/ ROUTINE Disposition Time: 14:40 Condition: STABLE Additional Instructions: Continue antibiotic as prescribe Warm salty water compresses Follow p with PMD in 2-3 days for re-evaluation. return to ED if any worsening or new changes. Instructions: Abscess Incision and Drainage - Clinical Impression Clinical Impression: Wound check, abscess
== END 2017-12-24 14:50 | disposition home or self-care (01) ==
LOC: C.ER 13:59
DX: Z48.00 Encounter for change or removal of nonsurgical wound dressing (principal); L02.411 Cutaneous abscess of right axilla

== ENCOUNTER 2018-05-18 17:28 | Emergency (ER) | payer OTHER, MEDICAID ==
[2018-05-18 17:36] VITALS: O2SAT 100
[2018-05-18] MEDS ORDERED: Sodium Chloride 0.9% 1,000 ML IV ONE (17:39)
--- NOTE | 2018-05-18 17:50 | C.PDOC ---
History Of Present Illness 22 year old female patient presents to the emergency room complaining of vomiting for 3 weeks. Associated symptoms includes LUQ abdominal pain. Patient also notes that for 3 days, she has been randomly getting raised red insect bite-like morse on her arms that disappears after awhile without any medicine. Patient denies fever, recent travels and diarrhea. Time Seen by Provider: 05/18/18 17:39 Chief Complaint (Nursing): Abdominal Pain History Per: Patient History/Exam Limitations: no limitations Onset/Duration Of Symptoms: Days (x3 weeks) Current Symptoms Are (Timing): Still Present Location Of Pain/Discomfort: LUQ, LLQ Past Medical History Reviewed: Historical Data, Nursing Documentation, Vital Signs Vital Signs: Last Vital Signs Temp 99 F 05/18/18 17:33 Pulse 98 H 05/18/18 17:33 Resp 18 05/18/18 17:33 BP 123/80 05/18/18 17:33 Pulse Ox 100 05/18/18 17:33 - Medical History PMH: No Chronic Diseases Family History: States: Unknown Family Hx - Social History Hx Alcohol Use: No Hx Substance Use: No - Immunization History Hx Tetanus Toxoid Vaccination: No Hx Influenza Vaccination: No Hx Pneumococcal Vaccination: No Review Of Systems Constitutional: Negative for: Fever Cardiovascular: Negative for: Chest Pain, Palpitations Respiratory: Negative for: Shortness of Breath Gastrointestinal: Positive for: Vomiting, Abdominal Pain (LUQ). Negative for: Diarrhea, Rectal Pain Genitourinary: Negative for: Dysuria Skin: Positive for: Other (intermittent inseect bite-like raised red bumps) Physical Exam - Physical Exam Appears: Non-toxic, No Acute Distress Skin: Warm, Dry, No Rash Head: Atraumatic, Normacephalic Eye(s): bilateral: Normal Inspection Nose: Normal Oral Mucosa: Moist Throat: Normal Neck: Normal ROM Chest: Symmetrical Cardiovascular: Rhythm Regular Respiratory: Normal Breath Sounds, No Rales, No Rhonchi, No Wheezing Gastrointestinal/Abdominal: Soft, Tenderness (mild to LUQ and LLQ on deep palpation), No Organomegaly, No Mass, No Distention, No Guarding, No Rebound, No Ascites Back: No CVA Tenderness Extremity: Bilateral: Atraumatic, Normal Color And Temperature, Normal ROM Neurological/Psych: Oriented x3, Normal Speech Gait: Steady ED Course And Treatment - Laboratory Results Result Diagrams: 05/18/18 17:55 05/18/18 17:55 Lab Interpretation: No Acute Changes O2 Sat by Pulse Oximetry: 100 (RA) Pulse Ox Interpretation: Normal - Other Rad obstructive series X-Ray: Viewed By Me, Read By Radiologist Interpretation: No acute findings related to/ accounting for the clinical presentation. No evidence of mechanical obstruction or free air. Constipation without fecal impaction. Medical Decision Making Medical Decision Making: Prior record reviewed patient was admitted for presumed viral pancreatitis 11/2017 Plan: -- blood work -- Obstructive series -- Pepcid -- IV fluids -- zofran Progress: Labs reviewed and unremarkable. UA negative Xray of abdomen shows constipation, no findings related to obstruction. Patient re-evaluated and was sitting up comfortably on stretcher in no distress. Patient has no vomiting while observed in ED. Discussed lab and xray findings. The plan is to discharge patient with Rx and to follow up with GI Disposition Counseled Patient/Family Regarding: Studies Performed, Diagnosis, Need For Followup, Rx Given - Disposition Referrals: Tashia Ni [Staff Provider] - Disposition: HOME/ ROUTINE Disposition Time: 18:38 Condition: STABLE Additional Instructions: Your xray shows constipation , and labs were normal. Take Colace daily to help soften stool Drink bottle of magnesium citrate to help with bowel movement. Take Miralax for constipation as needed. Follow up with your doctor and GI for further evaluation Return to ER if you develop any fever, increased abdominal pain, vomiting, blood in stool or other concern Prescriptions: Docusate [Colace] 100 mg PO TID PRN #30 cap PRN Reason: Constipation Magnesium Citrate [Citrate of Mag] 300 ml PO ONCE PRN #1 bottle PRN Reason: Constipation Polyethylene Glycol 3350 [Miralax] 17 gm PO ONCE PRN #1 packet PRN Reason: Constipation Forms: [employer] (Mauritian) - POA Present On Arrival: None - Clinical Impression Clinical Impression: Constipation, Vomiting - PA / LENDING ADVISOR / Resident Statement MD/ has reviewed & agrees with the documentation as recorded. - Scribe Statement The provider has reviewed the documentation as recorded by the Karla Ware Do All medical record entries made by the Scribe were at my direction and personally dictated by me. I have reviewed the chart and agree that the record accurately reflects my personal performance of the history, physical exam, medical decision making, and the department course for this patient. I have also personally directed, reviewed, and agree with the discharge instructions and disposition.
[2018-05-18] MEDS ORDERED: Sodium Chloride 0.9% 0 ML ONE (17:51)
[2018-05-18] MEDS ORDERED: Sodium Chloride 0.9% 1,000 ML ONE (17:53)
[2018-05-18 17:59] LABS: BASO # 0.1 K/uL (0.0-0.2); BASO % 0.7 % (0.0-2.0); EOS # 0.2 K/uL (0.0-0.7); EOS % 1.9 % (0.0-4.0); LYMPH # 2.2 K/uL (1.0-4.3); LYMPH % 24.3 % (20.0-40.0); MEAN CELL VOLUME 88.5 fL (81.0-99.0); MEAN CORPUSCULAR HGB CONC 32.7 g/dL (33.0-37.0); MEAN PLATELET VOLUME 8.5 fL (7.2-11.7); MONO # 0.6 K/uL (0.0-0.8); MONO % 6.5 % (0.0-10.0); NEUT # 5.9 K/uL (1.8-7.0); NEUT % 66.6 % (50.0-75.0); RBC 4.47 Mil/uL (3.80-5.20); RED CELL DISTRIBUTION WIDTH 14.1 % (11.5-14.5)
[2018-05-18 18:03] LABS: WHITE BLOOD COUNT 8.9 K/uL (4.8-10.8)
[2018-05-18 18:11] LABS: ALB/GLOB RATIO 1.5 (1.0-2.1); ALBUMIN 4.5 g/dL (3.5-5.0); ALT/SGPT 14 U/L (9-52); AST/SGOT 22 U/L (14-36); BLOOD UREA NITROGEN 10 mg/dL (7-17); CALCIUM 8.9 mg/dl (8.6-10.4); GFR NON-AFRICAN AMERICAN > 60; LIPASE 117 U/L (23-300)
[2018-05-18 18:21] LABS: SQUAMOUS EPITHIAL 4 /hpf (0-5); URINE BILIRUBIN NEGATIVE (NEGATIVE); URINE BLOOD NEGATIVE (NEGATIVE); URINE CLARITY Clear (Clear); URINE COLOR Yellow (YELLOW); URINE GLUCOSE (UA) NORMAL (Normal); URINE LEUKOCYTE ESTERASE NEG Leu/uL (Negative); URINE PROTEIN NEGATIVE (NEGATIVE); URINE UROBILINOGEN NORMAL mg/dL (0.2-1.0)
--- NOTE | 2018-05-18 18:40 | RAD ---
Date of service: 05/18/2018 PROCEDURE: Radiographs of the chest and abdomen (obstructive series) HISTORY: abd pain, vomiting, constipation COMPARISON: No prior. TECHNIQUE: AP radiograph of the chest, with upright and supine radiographs of the abdomen. FINDINGS: CHEST: Lungs: Clear. Cardiovascular: Normal size heart. No pulmonary vascular congestion. No aortic atherosclerotic calcification present Pleura: No pleural fluid. No pneumothorax. Other findings: None. ABDOMEN AND PELVIS: Bowel: Constipation without fecal impaction or obstruction. Free air: None. Bones: Thoracolumbar scoliosis. Other findings: None. IMPRESSION: No acute findings related to/ accounting for the clinical presentation. No evidence of mechanical obstruction or free air. Constipation without fecal impaction.
[2018-05-18 18:51] VITALS: BP 104/69; PULSE 86; RESP 20; TEMP 97.9
== END 2018-05-18 19:07 | disposition home or self-care (01) ==
LOC: C.ER 17:28
DX: K59.00 Constipation, unspecified (principal); R11.10 Vomiting, unspecified
CPT/HCPCS: 74022; 80053; 81001; 81025; 83690; 85025; 96361; 96374; 96375; 99284; J2405; J7030